=== PATIENT | female | born 1950 | race African-American/Black ===

== ENCOUNTER 2024-04-20 18:05 | Inpatient (IN) | payer MEDICARE ==
[~2024-04-20] VITALS: Ht 165.1 cm; Wt 96.6 kg
[2024-04-20] MEDS ORDERED: SODIUM CHLORIDE FLUSH 10 ML SYR IV PRN (19:00)
[2024-04-20] MEDS: IBUPROFEN 600 MG TAB PO STA (19:21)
[2024-04-20] MEDS: BENZONATATE 100 MG CAP PO STA (19:21)
[2024-04-20 19:32] LABS: BASOPHILS % 0.4 % (0.0-1.0); EOSINOPHILS # (AUTO) 0.2 (0.0-0.4); EOSINOPHILS % 2.4 % (0.0-6.0); HEMATOCRIT 38.2 % (34.2-44.1); HEMOGLOBIN 12.1 g/dL (12.0-16.0); LYMPHOCYTES % 26.6 % (18.0-39.1); MEAN CORPUSCULAR HEMOGLOBIN 28.2 pg (28-32); MEAN CORPUSCULAR HGB CONC 31.7 g/dL (31-35); MONOCYTES # (AUTO) 0.4 (0.2-0.8); MONOCYTES % 5.2 % (4.4-11.3); NEUTROPHILS # (AUTO) 4.9 (2.1-6.9); PLATELET COUNT 319 x10e3/uL (140-360); RED BLOOD COUNT 4.29 x10e6/uL (3.6-5.1); RED CELL DISTRIBUTION WIDTH 15.2 % (11.7-14.4); WHITE BLOOD COUNT 7.57 x10e3/uL (4.8-10.8)
[2024-04-20 20:04] LABS: ALBUMIN 3.3 g/dL (3.5-5.0); ALBUMIN/GLOBULIN RATIO 0.7 (0.8-2.0); ANION GAP 13.8 mmol/L (8-16); BILIRUBIN,TOTAL 0.3 mg/dL (0.2-1.2); CALCIUM 9.6 mg/dL (8.4-10.2); CREATININE, SERUM 1.03 mg/dL (0.57-1.11); POTASSIUM 3.8 mmol/L (3.5-5.1); TOTAL PROTEIN 7.9 g/dL (6.5-8.1)
[2024-04-20 20:10] LABS: TROPONIN I 0.01 ng/mL (0-0.300)
[2024-04-20 21:24] VITALS: PULSE 77; RESP 18; TEMP 98.5
[2024-04-20] MEDS ORDERED: ONDANSETRON HCL INJ 2MG/ML 2ML 2 MG/ML VIAL IV PRN (22:45)
[2024-04-20] MEDS ORDERED: SODIUM CHLORIDE FLUSH 10 ML SYR INJ PRN (22:45)
[2024-04-21] VITALS (12 sets, daily range): BP systolic 137–179; BP diastolic 54–84; PULSE 69–84; RESP 18–20; TEMP 97.7–98.4; O2SAT 97–100
[2024-04-21] MEDS ORDERED: CLONAZEPAM1 MG PO (01:09)
[2024-04-21] MEDS ORDERED: MONTELUKAST SOD10 MG PO (01:09)
[2024-04-21] MEDS ORDERED: LOSARTAN POTASS25 MG PO (01:09)
[2024-04-21] MEDS ORDERED: NEBIVOLOL HCL5 MG PO (01:09)
[2024-04-21] MEDS ORDERED: AMBIEN10 MG PO (01:09)
[2024-04-21] MEDS ORDERED: CETIRIZINE HCL10 MG PO (01:09)
[2024-04-21] MEDS ORDERED: BUDESONIDE0.5 MG/2 M INH (01:09)
[2024-04-21] MEDS ORDERED: SERTRALINE HCL100 MG PO (01:09)
[2024-04-21 06:08] LABS: BASOPHILS % 0.1 % (0.0-1.0); EOSINOPHILS # (AUTO) 0.3 (0.0-0.4); EOSINOPHILS % 3.1 % (0.0-6.0); HEMATOCRIT 35.3 % (34.2-44.1); LYMPHOCYTES # (AUTO) 2.5 (1.0-3.2); LYMPHOCYTES % 29.3 % (18.0-39.1); MEAN CORPUSCULAR HEMOGLOBIN 27.6 pg (28-32); MEAN CORPUSCULAR HGB CONC 31.2 g/dL (31-35); MEAN CORPUSCULAR VOLUME 88.5 fL (81-99); MONOCYTES # (AUTO) 0.5 (0.2-0.8); MONOCYTES % 6.1 % (4.4-11.3); NEUTROPHILS # (AUTO) 5.2 (2.1-6.9); NEUTROPHILS % 60.9 % (38.7-80.0); PLATELET COUNT 291 x10e3/uL (140-360); RED BLOOD COUNT 3.99 x10e6/uL (3.6-5.1); RED CELL DISTRIBUTION WIDTH 15.1 % (11.7-14.4); WHITE BLOOD COUNT 8.59 x10e3/uL (4.8-10.8)
[2024-04-21 06:51] LABS: ALBUMIN/GLOBULIN RATIO 0.7 (0.8-2.0); ANION GAP 14.8 mmol/L (8-16); BILIRUBIN,TOTAL 0.2 mg/dL (0.2-1.2); CALCIUM 9.9 mg/dL (8.4-10.2); CREATININE, SERUM 1.07 mg/dL (0.57-1.11); POTASSIUM 3.8 mmol/L (3.5-5.1); TOTAL PROTEIN 7.1 g/dL (6.5-8.1)
[2024-04-21] MEDS ORDERED: HYDRALAZINE HCL 20 MG/ML VIAL IV PRN (10:00)
[2024-04-21] MEDS: SERTRALINE HCL 100 MG TAB PO SCH (11:25)
[2024-04-21] MEDS: LOSARTAN POTASSIUM 25 MG TAB PO SCH (11:26)
[2024-04-21] MEDS: BUDESONIDE 0.5MG/2 ML NEB INH SCH (12:35)
[2024-04-21] MEDS ORDERED: IOPAMIDOL 370 MG/ML 100 ML INFUS..BTL INJ ONE (13:06)
[2024-04-21] MEDS: MONTELUKAST SODIUM 10 MG TAB PO SCH (20:14)
[2024-04-21] MEDS: CLONAZEPAM 1 MG TAB PO PRN (20:14)
[2024-04-22] VITALS (8 sets, daily range): BP systolic 150–160; BP diastolic 63–72; PULSE 68–82; RESP 14–19; TEMP 97.8–98.1; O2SAT 95–100
[2024-04-22] MEDS: ACETAMINOPHEN 325 MG TAB PO PRN (03:52)
[2024-04-22] MEDS: ALBUTEROL/IPRATROPIUM 3 ML NEB NEB PRN (07:27)
[2024-04-22] MEDS: ZOLPIDEM TARTRATE 10 MG TAB PO PRN (20:58)
[2024-04-23] VITALS (8 sets, daily range): BP systolic 140–161; BP diastolic 55–76; PULSE 71–86; RESP 16–20; TEMP 97.5–98.6; O2SAT 95–100
[2024-04-23 08:50] LABS: BASOPHILS % 0.3 % (0.0-1.0); EOSINOPHILS # (AUTO) 0.2 (0.0-0.4); EOSINOPHILS % 3.3 % (0.0-6.0); HEMATOCRIT 36.2 % (34.2-44.1); HEMOGLOBIN 11.7 g/dL (12.0-16.0); LYMPHOCYTES # (AUTO) 2.3 (1.0-3.2); LYMPHOCYTES % 32.5 % (18.0-39.1); MEAN CORPUSCULAR HEMOGLOBIN 27.6 pg (28-32); MEAN CORPUSCULAR HGB CONC 32.3 g/dL (31-35); MEAN CORPUSCULAR VOLUME 85.4 fL (81-99); MONOCYTES # (AUTO) 0.5 (0.2-0.8); MONOCYTES % 6.7 % (4.4-11.3); NEUTROPHILS # (AUTO) 4.1 (2.1-6.9); NEUTROPHILS % 56.8 % (38.7-80.0); PLATELET COUNT 308 x10e3/uL (140-360); RED BLOOD COUNT 4.24 x10e6/uL (3.6-5.1); RED CELL DISTRIBUTION WIDTH 14.8 % (11.7-14.4)
[2024-04-23 09:44] LABS: ANION GAP 12.9 mmol/L (8-16); CALCIUM 9.8 mg/dL (8.4-10.2); CREATININE, SERUM 0.93 mg/dL (0.57-1.11); POTASSIUM 3.9 mmol/L (3.5-5.1)
[2024-04-23] MEDS ORDERED: IOPAMIDOL 370 MG/ML 100 ML INFUS..BTL INJ ONE (18:38)
[2024-04-24] VITALS (13 sets, daily range): BP systolic 137–156; BP diastolic 56–80; PULSE 70–92; RESP 16–20; TEMP 97.4–98.4; O2SAT 96–100
[2024-04-24] MEDS ORDERED: NITROGLYCERIN 0.4 MG SUBL SL PRN (02:15)
[2024-04-24 02:59] LABS: TROPONIN I 0.004 ng/mL (0-0.300)
[2024-04-24 06:05] LABS: CREATINE KINASE 115 IU/L (29-168)
[2024-04-24] MEDS: SODIUM CHLORIDE 0.9% 250ML 250 ML ONE (09:56)
[2024-04-24 11:31] LABS: TROPONIN I < 0.001 ng/mL (0-0.300)
[2024-04-25] MEDS ORDERED: BENZONATATE100 MG PO (02:54)
[2024-04-25] MEDS ORDERED: BYSTOLIC5 MG PO (02:54)
[2024-04-25] MEDS ORDERED: PANTOPRAZOLE SO40 MG PO (02:54)
[2024-04-25 03:39] VITALS: BP 140/88; PULSE 83; RESP 20; TEMP 98.3; O2SAT 100
[2024-04-25 04:02] VITALS: PULSE 87; RESP 16; O2SAT 100
[2024-04-25 05:47] LABS: BASOPHILS % 0.2 % (0.0-1.0); EOSINOPHILS # (AUTO) 0.3 (0.0-0.4); EOSINOPHILS % 3.3 % (0.0-6.0); HEMATOCRIT 37.7 % (34.2-44.1); HEMOGLOBIN 11.9 g/dL (12.0-16.0); LYMPHOCYTES # (AUTO) 2.3 (1.0-3.2); LYMPHOCYTES % 28.1 % (18.0-39.1); MEAN CORPUSCULAR HEMOGLOBIN 27.4 pg (28-32); MEAN CORPUSCULAR HGB CONC 31.6 g/dL (31-35); MEAN CORPUSCULAR VOLUME 86.9 fL (81-99); MONOCYTES # (AUTO) 0.5 (0.2-0.8); MONOCYTES % 6.2 % (4.4-11.3); NEUTROPHILS # (AUTO) 5.1 (2.1-6.9); PLATELET COUNT 333 x10e3/uL (140-360); RED BLOOD COUNT 4.34 x10e6/uL (3.6-5.1); RED CELL DISTRIBUTION WIDTH 14.9 % (11.7-14.4); WHITE BLOOD COUNT 8.25 x10e3/uL (4.8-10.8)
[2024-04-25 06:32] LABS: ANION GAP 15.2 mmol/L (8-16); CALCIUM 9.8 mg/dL (8.4-10.2); CREATININE, SERUM 0.81 mg/dL (0.57-1.11); POTASSIUM 4.2 mmol/L (3.5-5.1)
[2024-04-25 07:42] VITALS: PULSE 78; RESP 16; O2SAT 96
[2024-04-25 08:00] VITALS: BP 140/88; PULSE 78; RESP 16; TEMP 98.3; O2SAT 96
[2024-04-25 12:00] VITALS: BP 157/76; PULSE 79; RESP 18; TEMP 97.9; O2SAT 97
== END 2024-04-25 14:54 | disposition home or self-care (01) | DRG 194 ==
LOC: ER 18:45 → ERHOLD 22:31 → MED/SURG2 23:41 → OBSVTOIN 04-23 08:08
PROVIDERS: ADMIT Internal Medicine; ATTEND Internal Medicine
DX: J18.0 Bronchopneumonia, unspecified organism (principal); I31.39 Other pericardial effusion (noninflammatory); I10 Essential (primary) hypertension; I27.20 Pulmonary hypertension, unspecified; K76.0 Fatty (change of) liver, not elsewhere classified; R73.03 Prediabetes; K57.30 Diverticulosis of large intestine without perforation or abscess without bleeding; E66.9 Obesity, unspecified; Z68.36 Body mass index [BMI] 36.0-36.9, adult; M25.512 Pain in left shoulder; M25.511 Pain in right shoulder; M25.562 Pain in left knee; M25.561 Pain in right knee; Z79.899 Other long term (current) drug therapy
CPT/HCPCS: 36415; 71046; 71260; 74177; 80048; 80053; 82550; 82948; 83880; 84484; 85025; 93005; 93306; 94660; 94760; 94799; 99284; G0378; J0696; J7050; Q9967